=== PATIENT | male | born 1995 | race Hispanic/Latino ===

== ENCOUNTER 2022-09-12 18:02 | Emergency (ER) | payer OTHER, SELFPAY ==
[2022-09-12] MEDS ORDERED: HYDROcodone/Acetaminophen 5/325 mg Tablet ONE (18:40)
== END 2022-09-12 19:29 | disposition home or self-care (01) ==
LOC: ERS 18:02
DX: S43.102A Unspecified dislocation of left acromioclavicular joint, initial encounter (principal); V86.56XA Driver of dirt bike or motor/cross bike injured in nontraffic accident, initial encounter